=== PATIENT | female | born 1945 | race Caucasian/White ===

== ENCOUNTER → 2021-07-21 13:54 | Outpatient (BNVA) | payer MEDICARE, OTHER, SELFPAY | PROVIDERS: PCP Internal Medicine; Visit Provider Nurse Practitioner Family | DX: G20 Parkinson's disease (principal); G25.0 Essential tremor | CPT/HCPCS: 99212 ==

== ENCOUNTER → 2021-11-10 13:23 | Outpatient (BNVA) | payer MEDICARE, OTHER, SELFPAY | PROVIDERS: PCP Internal Medicine; Visit Provider Nurse Practitioner Family | DX: G20 Parkinson's disease (principal); G25.0 Essential tremor; R07.89 Other chest pain | CPT/HCPCS: 99212 ==

== ENCOUNTER → 2022-03-30 13:48 | Outpatient (BNVA) | payer MEDICARE, OTHER, SELFPAY | PROVIDERS: PCP Internal Medicine; Visit Provider Nurse Practitioner Family | DX: G20 Parkinson's disease (principal); G25.0 Essential tremor; R07.89 Other chest pain | CPT/HCPCS: 99212 ==

== ENCOUNTER → 2022-07-31 14:14 | Outpatient (BNVA) | payer MEDICARE, OTHER, SELFPAY | PROVIDERS: PCP Internal Medicine; Visit Provider Nurse Practitioner Family | DX: G20 Parkinson's disease (principal); K59.00 Constipation, unspecified; Z79.899 Other long term (current) drug therapy | CPT/HCPCS: 99212 ==